=== PATIENT | female | born 1990 | race Two or more races ===

== ENCOUNTER 2019-10-03 12:30 | Emergency (ER) | payer OTHER ==
[~2019-10-03] VITALS: Ht 154.9 cm; Wt 52.2 kg
--- NOTE | 2019-10-03 12:41 | NUR ---
PT SELF PRESENTS TO ED, AMBULATORY TO ER BED 14 C/O ANXIETY, UNABLE TO SLEEP AT NIGHT. STATES WANTS TO BE ADMITTED TO PSYCH VOLUNTARILY FOR MANAGEMENT. 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 STABLE VITALS. AWAITING MD DIAZ.
--- NOTE | 2019-10-03 12:50 | NUR ---
DR WRIGHT AT BEDSIDE FOR EVAL.
--- NOTE | 2019-10-03 13:00 | NUR ---
SALON RECEPTIONIST AT BEDSIDE FOR BLOOD DRAW.
[2019-10-03 13:01] LABS: APPEARANCE,URINE Clear (CLEAR); BILIRUBIN,URINE Negative (NEGATIVE); BLOOD, URINE Negative Ery/uL (NEGATIVE); COLOR,URINE Yellow (YELLOW); KETONES,URINE Negative (NEGATIVE); LEUKOCYTE ESTERASE ,URINE Negative (NEGATIVE); NITRITE, URINE Negative (NEGATIVE); PROTEIN,URINE Negative (NEGATIVE); UGLUCOSE Negative (NEGATIVE)
[2019-10-03 13:06] LABS: BACTERIA,URINE Few /HPF (None Seen); RBC,URINE 0-2 /HPF (0-2); SQUAMOUS EPITHELIAL CELL,UR Few /HPF (None Seen); WBC,URINE 0-2 /HPF (0-3)
[2019-10-03 13:08] LABS: BASOPHILS % (AUTO) 0.7 % (0.0-2.0); EOSINOPHILS % (AUTO) 0.3 % (0.0-6.0); HEMATOCRIT 37 % (33-45); HEMOGLOBIN 12.2 g/dL (11.5-14.8); LYMPHOCYTES % (AUTO) 23.6 % (20.0-44.0); MEAN CORPUSCULAR HGB CONC 33 g/dl (31.0-36.0); MEAN CORPUSCULAR VOLUME 92 fL (82-100); MONOCYTES # (AUTO) 0.2 /CMM (0.1-1.30); MONOCYTES % (AUTO) 5.7 % (2.0-12.0); NEUTROPHILS # (AUTO) 2.9 /CMM (1.8-8.9); NEUTROPHILS % (AUTO) 69.7 % (43.0-81.0); PLATELET COUNT (AUTO) 274 /CMM (150-450); RED BLOOD CELL COUNT(AUTO) 4.03 MIL/uL (4.0-5.2); WHITE BLOOD COUNT (AUTO) 4.2 K/uL (4.3-11.0)
[2019-10-03 13:17] LABS: CALCIUM, SERUM 8.5 mg/dL (8.5-10.1); CARBON DIOXIDE 25 mmol/L (21-32); CHLORIDE 108 mmol/L (98-107); CREATININE 0.8 mg/dL (0.6-1.3); GLUCOSE 98 mg/dL (74-106); POTASSIUM 3.9 mmol/L (3.5-5.1); SODIUM SERUM 140 mmol/L (136-145); UREA NITROGEN, BLOOD 11 mg/dL (7-18)
[2019-10-03 13:29] LABS: ALANINE AMINOTRANSFERASE 20 U/L (12-78); ALBUMIN 3.3 g/dL (3.4-5.0); ALKALINE PHOSPHATASE 88 U/L (46-116); ASPARTATE AMINOTRANSFERASE 13 U/L (15-37); BILIRUBIN,DIRECT 0.2 mg/dL (0.0-0.2); BILIRUBIN,TOTAL 0.7 mg/dL (0.2-1.0); TOTAL PROTEIN, SERUM 6.5 g/dL (6.4-8.2)
[2019-10-03 13:30] LABS: ACETAMINOPHEN 0 ug/ml (10-30); ALCOHOL, BLOOD < 3 mg/dL (0-0); SALICYLATE < 2.8 mg/dL (2.8-20.0)
--- NOTE | 2019-10-03 14:06 | NUR ---
This SW contacted José Miguel from [facility] to confirm benefits for this patients voluntary psychiatric hospitalization as she has [facility]. José Miguel asked this SW to fax over clinicals to confirm benefits. This SW to fax over clinicals. SW remains available for all needs regarding this patient.
--- NOTE | 2019-10-03 14:08 | NUR ---
José Miguel from [facility] confirmed benefits for this patient and is currently holding a bed. Confirmation to follow to this SW or to the ED directly. SW to remain available for all needs regarding this patient.
--- NOTE | 2019-10-03 15:06 | NUR ---
PATIENT ACCEPTED BY DR. DALAL/RUDY AT [facility] GIVE REPORT TO SARAH [phone]
--- NOTE | 2019-10-03 15:11 | NUR ---
[facility] ETA 1800
--- NOTE | 2019-10-03 15:13 | NUR ---
REPORT GIVEN TO NURSE KORTNEY SMITH. AWAITNG TRANSPORT AMBULANCE.
--- NOTE | 2019-10-03 16:10 | NUR ---
2:00pm This SW met with the patient at bedside for a social service consult per DANNY Freitas's request. Patient is a 28-year-old female. Patient was receptive to speaking with this SW. Patient was alert and orientated x4. Patient confirmed demographics including date of , social security number and address on the face sheet. Patient stated she lived in the home with her children and family. Patient did not want to provide information regarding a primary contact lens blocker. Patient reports that she is currently receiving approximately $600 in food stamps. Patient reported that she has been diagnosed with post-traumatic stress disorder, depression and anxiety. Patient asked this social service manager for a voluntary psychiatric hospital transfer. Patient expressed that she would like to be transferred because she is currently having difficulty sleeping and expressed that she would like adjustment on medications. This SW to contact José Miguel at [facility] to confirm insurance benefits of this patient. This SW to remain available to this patient, as needed
[2019-10-03 16:40] VITALS: BP 121/60
--- NOTE | 2019-10-03 17:12 | NUR ---
MERCEDES BENAVIDEZ FROM ED. LAST SEEN AT 1645. FOR VOLUNTARY PSYCH ADMISSION. WAS NOT SUICIDAL UPON INITIAL ASSESSMENT. DR LAW SOLIS.
== END 2019-10-03 17:15 | disposition left against medical advice (07) ==
LOC: ER 12:36
DX: G47.00 Insomnia, unspecified (principal); F43.10 Post-traumatic stress disorder, unspecified; F15.10 Other stimulant abuse, uncomplicated; F12.10 Cannabis abuse, uncomplicated
CPT/HCPCS: 36415; 80048; 80076; 80305; 80307; 80329; 81001; 84703; 85025; 99283; G0480; 81000-TC

== ENCOUNTER 2019-10-03 19:27 | Emergency (ER) | payer OTHER ==
[~2019-10-03] VITALS: Ht 157.5 cm; Wt 52.2 kg
--- NOTE | 2019-10-03 19:45 | NUR ---
PT CAME TO THE ED FOR VOLUNTARY PSYCH ADMIT. SI W/ A PLAN TO OVERDOSE ON LEXAPRO. PT AAOX4, VSS, RESPIRATIONS EVEN AND UNLABORED ON RA W/ NAD NOTED. PT CHANGED INTO GOWN, BELONGINGS PLACED TO LOCKER, SUICIDE PRECAUTIONS IMPLEMENTED. SITTER AT BEDSIDE FOR SAFETY
--- NOTE | 2019-10-03 19:48 | NUR ---
Ronit peter in [facility] - 10/03/19 at 1955 by JG URINE COLLECTED AND SENT TO LAB
[2019-10-03 20:21] LABS: BASOPHILS % (AUTO) 0.5 % (0.0-2.0); EOSINOPHILS % (AUTO) 0.4 % (0.0-6.0); HEMATOCRIT 40 % (33-45); LYMPHOCYTES # (AUTO) 1.4 /CMM (0.8-4.8); LYMPHOCYTES % (AUTO) 28.2 % (20.0-44.0); MEAN CORPUSCULAR HGB CONC 33 g/dl (31.0-36.0); MEAN CORPUSCULAR VOLUME 92 fL (82-100); MONOCYTES # (AUTO) 0.3 /CMM (0.1-1.30); MONOCYTES % (AUTO) 6.3 % (2.0-12.0); NEUTROPHILS # (AUTO) 3.2 /CMM (1.8-8.9); NEUTROPHILS % (AUTO) 64.6 % (43.0-81.0); PLATELET COUNT (AUTO) 301 /CMM (150-450); RED BLOOD CELL COUNT(AUTO) 4.32 MIL/uL (4.0-5.2); WHITE BLOOD COUNT (AUTO) 4.9 K/uL (4.3-11.0)
[2019-10-03 20:30] LABS: CALCIUM, SERUM 8.9 mg/dL (8.5-10.1); CARBON DIOXIDE 24 mmol/L (21-32); CHLORIDE 107 mmol/L (98-107); CREATININE 0.8 mg/dL (0.6-1.3); GLUCOSE 96 mg/dL (74-106); POTASSIUM 3.7 mmol/L (3.5-5.1); SODIUM SERUM 140 mmol/L (136-145); UREA NITROGEN, BLOOD 10 mg/dL (7-18)
[2019-10-03 20:36] LABS: ALANINE AMINOTRANSFERASE 21 U/L (12-78); ALBUMIN 3.5 g/dL (3.4-5.0); ALKALINE PHOSPHATASE 96 U/L (46-116); ASPARTATE AMINOTRANSFERASE 15 U/L (15-37); BILIRUBIN,DIRECT 0.1 mg/dL (0.0-0.2); BILIRUBIN,TOTAL 0.3 mg/dL (0.2-1.0); TOTAL PROTEIN, SERUM 6.9 g/dL (6.4-8.2)
[2019-10-03 20:40] LABS: ACETAMINOPHEN < 2 ug/ml (10-30); ALCOHOL, BLOOD < 3 mg/dL (0-0); SALICYLATE 0.3 mg/dL (2.8-20.0)
[2019-10-03 20:42] LABS: APPEARANCE,URINE Clear (CLEAR); BILIRUBIN,URINE SMALL (NEGATIVE); BLOOD, URINE Negative Ery/uL (NEGATIVE); COLOR,URINE Orange (YELLOW); KETONES,URINE Trace (NEGATIVE); LEUKOCYTE ESTERASE ,URINE Negative (NEGATIVE); NITRITE, URINE Negative (NEGATIVE); PROTEIN,URINE Trace mg/dl (NEGATIVE); UGLUCOSE Negative (NEGATIVE)
[2019-10-03 20:51] LABS: BACTERIA,URINE Few /HPF (None Seen); RBC,URINE NONE SEEN /HPF (0-2); SQUAMOUS EPITHELIAL CELL,UR Few /HPF (None Seen); WBC,URINE NONE SEEN /HPF (0-3)
--- NOTE | 2019-10-03 21:04 | NUR ---
PATIENT AMBULATED TO THE RESTROOM WITH A STEADY GAIT.
--- NOTE | 2019-10-03 21:32 | NUR ---
PATIENT IS RESTING IN BED. SIDE RAILS ARE UP FOR PATIENT SAFETY. PATIENT IS AAOX4. BREATHING EVENLY AND UNLABORED ON ROOM AIR. CONNECTED TO MONITOR. SITTER AT BEDSIDE.
--- NOTE | 2019-10-03 21:36 | NUR ---
[facility]
[2019-10-03] MEDS ORDERED: ONDANSETRON 4 MG TAB.RAPDIS ONE (22:10)
[2019-10-03] MEDS: ONDANSETRON 4 MG TAB.RAPDIS PO ONE (22:16)
--- NOTE | 2019-10-03 22:20 | NUR ---
ACCEPTED AT [facility]
--- NOTE | 2019-10-03 22:31 | NUR ---
REPORT GIVEN TO DANNY FRANCO
--- NOTE | 2019-10-03 22:40 | NUR ---
PT CONSTANTLY WANDERING AROUND THE ER. PT REDIRECTED TO HER ROOM. SITTER AT BEDSIDE FOR SAFETY.
--- NOTE | 2019-10-03 22:42 | NUR ---
PT ATTEMPTED TO BITE ONE OF THE ER STAFF. PT NON COOPERATIVE AND AGGRESSIVE. MADE AWARE.
--- NOTE | 2019-10-03 22:45 | NUR ---
PT THREATENS RN. PT STATES " I AM GOING TO FIND AND KILL YOU. WATCH". MD MADE AWARE. ORDERS CARRIED OUT.
[2019-10-03] MEDS ORDERED: LORAZEPAM INJ 2 MG/ML VIAL ONE (22:46)
[2019-10-03] MEDS: LORAZEPAM INJ 2 MG/ML VIAL IM ONE (22:48)
[2019-10-03] MEDS ORDERED: HALOPERIDOL LACTATE INJ 5 MG/ML VIAL ONE (22:49)
[2019-10-03] MEDS: HALOPERIDOL LACTATE INJ 5 MG/ML VIAL IM ONE (22:55)
--- NOTE | 2019-10-03 23:54 | NUR ---
PATIENT IS SLEEPING. EASILY AROUSABLE THROUGH VERBAL AND MECHANICAL STIMULI. BREATHING EVENLY AND UNLABORED ON ROOM AIR. CONNECTED TO THE MONITOR. SITTER IS AT BEDSIDE. SIDE RAILS ARE UP FOR SAFETY.
--- NOTE | 2019-10-04 04:09 | NUR ---
PT RESTING COMFORTABLY IN BED. VSS. NO ACUTE DISTRESS NOTED. SITTER AT BEDSIDE FOR SAFETY. WILL CONTINUE TO MONITOR
--- NOTE | 2019-10-04 07:07 | NUR ---
[facility] ETA 09
--- NOTE | 2019-10-04 07:08 | NUR ---
FOOD TRAY ORDERED FROM [facility]
--- NOTE | 2019-10-04 07:49 | NUR ---
PATIENT REFUSED FOOD TRAY. PLACED TRAY AT BEDSIDE.
[2019-10-04 09:10] VITALS: BP 100/64
--- NOTE | 2019-10-04 09:14 | NUR ---
PICKED UP BY [facility] IN STABLE CONDITION. VS TAKEN AND RECORDED. PATIENT WILL BE TRANSFERRED TO [facility]. CLINICALS GIVEN TO EMS TO BE GIVEN TO FACILITY.
== END 2019-10-04 09:11 ==
LOC: ER 19:29
DX: G47.00 Insomnia, unspecified (principal); F43.10 Post-traumatic stress disorder, unspecified; Z04.6 Encounter for general psychiatric examination, requested by authority
CPT/HCPCS: 36415; 80048; 80076; 80305; 80307; 80329; 81001; 84703; 85025; 96372 ×2; 99285; G0480; J1630; J2060; Q0162; 81000-TC

== ENCOUNTER 2022-09-13 15:53 | Emergency (ER) | payer OTHER ==
[~2022-09-13] VITALS: Ht 157.5 cm; Wt 68.9 kg
[~2022-09-13 15:53] MED LIST: NALO4SPR BNOSTRILS
[2022-09-13 16:34] LABS: BASOPHILS % (AUTO) 0.5 % (0.0-2.0); EOSINOPHILS % (AUTO) 0.1 % (0.0-6.0); HEMATOCRIT 40 % (33-45); HEMOGLOBIN 13.2 g/dL (11.5-14.8); LYMPHOCYTES % (AUTO) 11.9 % (20.0-44.0); MEAN CORPUSCULAR HEMOGLOBIN 29 PG (26.0-33.0); MEAN CORPUSCULAR HGB CONC 33 g/dl (31.0-36.0); MEAN CORPUSCULAR VOLUME 89 fL (82-100); MONOCYTES # (AUTO) 0.4 K/uL (0.1-1.30); MONOCYTES % (AUTO) 4.3 % (2.0-12.0); NEUTROPHILS # (AUTO) 6.8 K/uL (1.8-8.9); NEUTROPHILS % (AUTO) 83.2 % (43.0-81.0); PLATELET COUNT (AUTO) 349 K/uL (150-450); RED BLOOD CELL COUNT(AUTO) 4.53 MIL/uL (4.0-5.2); RED CELL DISTRIBUTION WIDTH 14.5 % (11.5-15.0); WHITE BLOOD COUNT (AUTO) 8.2 K/uL (4.3-11.0)
[2022-09-13 16:58] LABS: ALANINE AMINOTRANSFERASE 38 U/L (12-78); ALBUMIN 3.5 g/dL (3.4-5.0); ALCOHOL, BLOOD < 3 mg/dL (0-10); ALKALINE PHOSPHATASE 105 U/L (46-116); ASPARTATE AMINOTRANSFERASE 20 U/L (15-37); BILIRUBIN,DIRECT 0.1 mg/dL (0.0-0.2); BILIRUBIN,TOTAL 0.3 mg/dL (0.2-1.0); CALCIUM, SERUM 9.3 mg/dL (8.5-10.1); CARBON DIOXIDE 27 mmol/L (21-32); CHLORIDE 106 mmol/L (98-107); CREATININE 0.6 mg/dL (0.6-1.3); GLUCOSE 99 mg/dL (74-106); POTASSIUM 4.5 mmol/L (3.5-5.1); SODIUM SERUM 141 mmol/L (136-145); TOTAL PROTEIN, SERUM 7.3 g/dL (6.4-8.2); UREA NITROGEN, BLOOD 13 mg/dL (7-18)
[2022-09-13 17:01] LABS: ACETAMINOPHEN 0 ug/ml (10-30); SALICYLATE < 2.3 mg/dL (2.8-20.0)
[2022-09-13 18:09] LABS: APPEARANCE,URINE SLIGHTLY CLOUDY (CLEAR); BILIRUBIN,URINE NEGATIVE (NEGATIVE); BLOOD, URINE NEGATIVE Ery/uL (NEGATIVE); COLOR,URINE YELLOW (YELLOW); KETONES,URINE NEGATIVE (NEGATIVE); LEUKOCYTE ESTERASE ,URINE NEGATIVE (NEGATIVE); NITRITE, URINE NEGATIVE (NEGATIVE); PH,URINE 7.5 (5.0-8.0); PROTEIN,URINE NEGATIVE (NEGATIVE); UGLUCOSE NEGATIVE (NEGATIVE); UROBILINOGEN,URINE 0.2 EU/dL (0.2)
[2022-09-13 18:27] LABS: PREGNANCY TEST URINE QUAL NEGATIVE (NEGATIVE)
[2022-09-13 18:40] LABS: RBC,URINE NONE SEEN /HPF (0-2); WBC,URINE NONE SEEN /HPF (0-3)
[2022-09-13 18:41] LABS: ADD URINE CULTURE NO; BACTERIA,URINE Rare /HPF (None Seen)
[2022-09-13 18:51] LABS: AMPHETAMINE, URINE NEGATIVE (NEGATIVE); BARBITURATE, URINE NEGATIVE (NEGATIVE); BENZODIAZEPINE, URINE NEGATIVE (NEGATIVE); CANNABINOID, URINE NEGATIVE (NEGATIVE); COCCAINE, URINE NEGATIVE (NEGATIVE); OPIATE, URINE NEGATIVE (NEGATIVE); PHENCYCLIDINE SCREEN,URINE NEGATIVE (NEGATIVE)
[2022-09-30 22:47] VITALS: BP 116/63; TEMP 98.5; O2SAT 100
== END 2022-09-13 21:45 | disposition home or self-care (01) ==
LOC: ER 15:57
DX: R45.851 Suicidal ideations (principal); Z60.2 Problems related to living alone; Z20.822 Contact with and (suspected) exposure to COVID-19
CPT/HCPCS: 99285; 85025; 80048; 80076; 84703; 81001; 36415; 84702; 87426; 80143; 80320; 80307; C9803; G0480